=== PATIENT | male | born 1960 | race Caucasian/White ===

== ENCOUNTER 2017-12-04 13:00 | Outpatient (RCR) | payer OTHER | END 2017-12-04 14:00 | disposition home or self-care (01) | DRG 950 | LOC: PT 13:00 | DX: S86.911D Strain of unspecified muscle(s) and tendon(s) at lower leg level, right leg, subsequent encounter (principal); S70.01XD Contusion of right hip, subsequent encounter; S93.401D Sprain of unspecified ligament of right ankle, subsequent encounter ==

== ENCOUNTER 2023-11-13 07:51 | Emergency (ER) | payer MEDICARE, MEDICAID ==
[~2023-11-13] VITALS: Ht 177.8 cm; Wt 87.0 kg
[2023-11-13 07:57] VITALS: BP 129/81
[2023-11-13 08:00] VITALS: BP 128/92
[2023-11-13] MEDS ORDERED: DiphenhydrAMINE HCL 50 MG/ML SDV IV ONE (08:05)
[2023-11-13] MEDS ORDERED: DEXAMETHASONE SOD. PHOSPHATE 10 MG/ML VIAL IV ONE (08:05)
[2023-11-13] MEDS ORDERED: KETOROLAC TROMETHAMINE 30 MG/ML SDV IV ONE (08:05)
[2023-11-13] MEDS ORDERED: METOCLOPRAMIDE HCL 10 MG/2 ML SDV IV ONE (08:05)
[2023-11-13 08:18] LABS: BASO% 0.5 % (0-3); EOS% 3.1 % (0-8); HEMOGLOBIN 14.6 g/dl (14.0-18.0); IMMATURE GRANULOCYTES 0.1 % (0.0-5.0); MEAN CELL VOLUME 91.6 fL CALC (80.0-100.0); MEAN CORPUSCULAR HGB 29.7 pG CALC (26.0-32.0); MEAN CORPUSCULAR HGB CONC 32.4 g/dL CAL (32.0-36.0); MONO% 8.3 % (2-13); NEUT# 6.3 thou/uL (1.82-7.42); RED BLOOD COUNT 4.91 mill/uL (4.70-6.10); RED CELL DISTRI WIDTH 13.2 % (11.5-15.5)
[2023-11-13 08:30] VITALS: BP 124/77
[2023-11-13 08:32] LABS: ALBUMIN 4.1 g/dL (3.2-5.0); BILIRUBIN, TOTAL 0.4 mg/dL (0.2-1.3); POTASSIUM 4.5 mmol/l (3.5-5.1)
[2023-11-13 09:00] VITALS: BP 120/77
[2023-11-13 09:30] VITALS: BP 128/77
== END 2023-11-13 09:39 | disposition home or self-care (01) ==
LOC: ED 07:51
PROVIDERS: Family Medicine
DX: R51.9 Headache, unspecified (principal); I10 Essential (primary) hypertension; K21.9 Gastro-esophageal reflux disease without esophagitis; E11.40 Type 2 diabetes mellitus with diabetic neuropathy, unspecified; E78.1 Pure hyperglyceridemia; Z72.0 Tobacco use; Z20.822 Contact with and (suspected) exposure to COVID-19

== ENCOUNTER 2024-05-05 11:58 | Emergency (ER) | payer MEDICARE, MEDICAID ==
[~2024-05-05] VITALS: Ht 177.8 cm; Wt 92.9 kg
[2024-05-05] VITALS (7 sets, daily range): BP systolic 116–141; BP diastolic 75–84
[2024-05-05 13:18] LABS: BASO% 0.6 % (0-3); EOS% 2.3 % (0-8); HEMATOCRIT 44.6 % (39.0-50.0); HEMOGLOBIN 14.7 g/dl (14.0-18.0); IMMATURE GRANULOCYTES 0.1 % (0.0-5.0); LYMPH% 24.7 % (15-41); MEAN CELL VOLUME 91.8 fL CALC (80.0-100.0); MEAN CORPUSCULAR HGB 30.2 pG CALC (26.0-32.0); MONO% 7.3 % (2-13); NEUT# 5.17 thou/uL (1.82-7.42); RED BLOOD COUNT 4.86 mill/uL (4.70-6.10); RED CELL DISTRI WIDTH 13.1 % (11.5-15.5)
[2024-05-05 13:29] LABS: ALBUMIN 4.3 g/dL (3.2-5.0); ALKALINE PHOSPHATASE 52 u/l (38-126); ANION GAP 11 (6-22 (CALC)); BUN 15 mg/dL (8-23); BUN/CREATININE RATIO 14 (12-20 (CALC)); CARBON DIOXIDE 28 mmol/l (22-30); CHLORIDE 104 mmol/l (95-108); ESTIMATED GFR 84 ML/MIN (>=90 (CALC)); POTASSIUM 3.9 mmol/l (3.5-5.1); SGOT/AST 31 u/l (19-48); SODIUM 139 mmol/l (137-146); TOTAL PROTEIN 7.1 g/dL (6.3-8.2)
[2024-05-05 13:33] LABS: BILIRUBIN, TOTAL 0.6 mg/dL (0.2-1.3)
[2024-05-05] MEDS ORDERED: METHOCARBAMOL500 MG PO (14:18)
[2024-05-05] MEDS ORDERED: NAPROXEN500 MG PO (14:18)
== END 2024-05-05 14:28 | disposition home or self-care (01) ==
LOC: ED 11:58
PROVIDERS: Family Medicine
DX: S20.211A Contusion of right front wall of thorax, initial encounter (principal); I10 Essential (primary) hypertension; E11.9 Type 2 diabetes mellitus without complications; Z72.0 Tobacco use; W01.198A Fall on same level from slipping, tripping and stumbling with subsequent striking against other object, initial encounter